=== PATIENT | male | born 1950 | race Caucasian/White ===

== ENCOUNTER 2018-05-01 21:43 | Emergency (ER) | payer MEDICARE, BC ==
[~2018-05-01] VITALS: Ht 177.8 cm; Wt 81.6 kg
[2018-05-01 21:43] VITALS: BP 139/97
== END 2018-05-01 22:23 | disposition home or self-care (01) ==
LOC: ER 21:46
DX: H10.89 Other conjunctivitis (principal); B99.8 Other infectious disease; Z86.73 Personal history of transient ischemic attack (TIA), and cerebral infarction without residual deficits
CPT/HCPCS: A4606; Z7610